=== PATIENT | female | born 1995 | race Caucasian/White ===

== ENCOUNTER 2019-06-14 22:25 | Emergency (ER) | payer BC, OTHER ==
[2019-06-14] MEDS ORDERED: Ibuprofen 800 MG Tab PO ONE (23:24)
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
[2019-06-14] MEDS ORDERED: Baclofen 10 MG Tab PO ONE (23:34)
== END 2019-06-14 23:55 | disposition home or self-care (01) ==
LOC: FB.ED 22:25
DX: S29.012A Strain of muscle and tendon of back wall of thorax, initial encounter (principal); S46.911A Strain of unspecified muscle, fascia and tendon at shoulder and upper arm level, right arm, initial encounter; F17.210 Nicotine dependence, cigarettes, uncomplicated; F32.9 Major depressive disorder, single episode, unspecified; Z88.0 Allergy status to penicillin; F41.9 Anxiety disorder, unspecified; X58.XXXA Exposure to other specified factors, initial encounter; Y92.099 Unspecified place in other non-institutional residence as the place of occurrence of the external cause; Y99.0 Civilian activity done for income or pay
CPT/HCPCS: 36415; 73030-RT; 93005; 99000; 99283-25; A9270-GY

== ENCOUNTER 2020-08-05 11:28 | Emergency (ER) | payer BC, OTHER ==
[2020-08-05] MEDS ORDERED: hydrOXYzine HCl 50 MG/ML SDV IM ONE (11:45)
[2020-08-05] MEDS ORDERED: Ketorolac 30 MG/ML SDV IVPUSH ONE (11:45)
[2020-08-05] MEDS ORDERED: Ondansetron 4 MG/2 ML SDV IVPUSH ONE (11:45)
--- NOTE | 2020-08-05 11:47 | EDM.PDOC ---
ED HPI GENERAL MEDICAL PROBLEM - General Chief Complaint: Headache Stated Complaint: MIGRAINE Time Seen by Provider: 08/05/20 11:40 Source of Information: Reports: Patient History Limitations: Reports: No Limitations - History of Present Illness INITIAL COMMENTS - FREE TEXT/NARRATIVE: pt with a history of migraines and had one since yesterday , this am tool tylenol and ibuprofen and did not help with the pain states she has history of chronic migraine , has been to see neurologist , has PCP prescribed multiple medications : neurontin, OCP , amitriptyline, nortriptyline , Imitrex , and none has been effective. She currently on Depo injection to aid with menstrual cycle headache today is frontal , affects her vision , had nausea and vomiting this morning No change from prior headaches Mother requesting head Ct : did tell her , from history it did not seem as if it was a structural problem , but she still insisted on getting head CT Headache Pain Score (Numeric/FACES): 10 - Related Data Allergies Allergy/AdvReac Type Severity Reaction Status Date / Time Penicillins Allergy Intermediate Hives Verified 06/14/19 23:44 Home Meds: Home Meds Baclofen 10 mg PO TID PRN #30 tablet 06/14/19 [Rx] Ibuprofen 600 mg PO Q6H PRN #30 tablet 06/14/19 [Rx] Sertraline HCl 50 mg PO DAILY 06/14/19 [History] Ketorolac [Toradol] 10 mg PO Q6H PRN #20 tab 08/05/20 [Rx] Past Medical History Cardiovascular History: Reports: Heart Murmur Other Cardiovascular History: Has been told in past she has a heart murmur. Respiratory History: Reports: Asthma, Other (See Below) Other Respiratory History: Seasonal allergies. Uses an inhaler at times. 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 Neurological History: Reports: Migraines, Other (See Below) Other Neuro History: History of [place]. Psychiatric History: Reports: Anxiety, Depression Other Psychiatric History: took meds for these processes in the past but not recently - Infectious Disease History Infectious Disease History: Reports: Other (See Below) Other Infectious Disease History: History of [place]. Social & Family History - Family History Family Medical History: No Pertinent Family History - Caffeine Use Caffeine Use: Reports: Soda ED ROS GENERAL - Review of Systems Review Of Systems: See Below Constitutional: Reports: Malaise, Weakness, Fatigue. Denies: Fever, Chills HEENT: Reports: No Symptoms Respiratory: Reports: No Symptoms Cardiovascular: Reports: No Symptoms Endocrine: Reports: No Symptoms GI/Abdominal: Reports: Nausea, Vomiting : Reports: No Symptoms Musculoskeletal: Reports: No Symptoms. Denies: Neck Pain, Back Pain Skin: Reports: No Symptoms Neurological: Reports: Headache. Denies: Paresthesia, Pre-Existing Deficit, Syncope, Tingling, Trouble Speaking, Difficulty Walking, Weakness, Change in Speech, Gait Disturbance Psychiatric: Reports: No Symptoms Hematologic/Lymphatic: Reports: No Symptoms Immunologic: Reports: No Symptoms - Physical Exam Exam: See Below Exam Limited By: No Limitations General Appearance: Alert, WD/WN, No Apparent Distress Eye Exam: Bilateral Eye: EOMI Ears: Normal External Exam Nose: Normal Inspection Throat/Mouth: Normal Oropharynx Head Exam: Atraumatic, Normocephalic Neck: Supple, Non-Tender, Full Range of Motion Respiratory/Chest: No Respiratory Distress, No Accessory Muscle Use Cardiovascular: Normal Peripheral Pulses GI/Abdominal: Soft, Non-Tender Neuro Exam (Abbreviated): Alert, Oriented, CN II-XII Intact, Normal Cognition, Normal Gait, No Motor/Sensory Deficits Back Exam: Full Range of Motion Extremities: Normal Inspection, Normal Range of Motion Psychiatric: Anxious Skin Exam: Warm, Intact Course - Vital Signs Last Recorded V/S: Last Vital Signs Temp 36.7 C 08/05/20 14:12 Pulse 53 L 08/05/20 14:12 Resp 18 08/05/20 14:12 BP 125/84 08/05/20 14:12 Pulse Ox 100 08/05/20 14:12 - Orders/Labs/Meds Orders: Active Orders 24 hr Category Date Time Status Head wo Cont [CT] Stat Exams 08/05/20 13:05 Taken Lactated Ringers [Ringers, Lactated] 1,000 ml Med 08/05/20 12:00 Active IV ASDIRECTED Medication Orders Lactated Ringer's (Ringers, Lactated) 1,000 mls @ 999 mls/hr IV ASDIRECTED JACINDA Last Admin: 08/05/20 12:40 Dose: 999 mls/hr Documented by: THIEN Meds: Medications Generic Name Dose Route Start Last Admin Trade Name Austin PRN Reason Stop Dose Admin Lactated Ringer's 1,000 mls @ 999 mls/hr 08/05/20 12:00 08/05/20 12:40 Ringers, Lactated IV 999 mls/hr ASDIRECTED JACINDA Administration Discontinued Medications Generic Name Dose Route Start Last Admin Trade Name Austin PRN Reason Stop Dose Admin Hydroxyzine HCl 50 mg 08/05/20 11:45 08/05/20 12:18 Vistaril IM 08/05/20 11:46 50 mg ONETIME ONE Administration Ketorolac Tromethamine 30 mg 08/05/20 11:45 08/05/20 12:18 Toradol IVPUSH 08/05/20 11:46 30 mg ONETIME ONE Administration Ondansetron HCl 4 mg 08/05/20 11:45 08/05/20 12:18 Zofran IVPUSH 08/05/20 11:46 4 mg ONETIME ONE Administration - Re-Assessments/Exams Free Text/Narrative Re-Assessment/Exam: 08/05/20 15:38 pt started with IVF : toradol vistaril and Zofran given CT head done : negative pt declined to have full 1000cc of ivf on discharge [place] had reduced in intensity Departure - Departure Time of Disposition: 15:30 Disposition: Home, Self-Care 01 Condition: Fair Clinical Impression: Migraine, Tension-type headache - Discharge Information *PRESCRIPTION DRUG MONITORING PROGRAM REVIEWED*: Not Applicable *COPY OF PRESCRIPTION DRUG MONITORING REPORT IN PATIENT MARI: Not Applicable Prescriptions: Ketorolac [Toradol] 10 mg PO Q6H PRN #20 tab PRN Reason: Headache/Pain Instructions: Tension Headache, Adult, [id number], Recurrent Migraine Headache, [id number] Referrals: Dorian Marie MD [Primary Care Provider] - Forms: ED Department Discharge Additional Instructions: Make appointment to see a neurologist : Migraine/headache specialist Continue with all other medications as prescribed Sepsis Event Note (ED) - Focused Exam Vital Signs: Vital Signs Temp Pulse Resp BP Pulse Ox 08/05/20 14:12 36.7 C 53 L 18 125/84 100 08/05/20 11:35 36.7 C 129 H 18 145/74 H 100 - My Orders Last 24 Hours: My Active Orders 08/05/20 12:00 Lactated Ringers [Ringers, Lactated] 1,000 ml IV ASDIRECTED 08/05/20 13:05 Head wo Cont [CT] Stat - Assessment/Plan Last 24 Hours: My Active Orders 08/05/20 12:00 Lactated Ringers [Ringers, Lactated] 1,000 ml IV ASDIRECTED 08/05/20 13:05 Head wo Cont [CT] Stat
[2020-08-05] MEDS ORDERED: Lactated Ringers 1,000 ML IV SCH (12:00)
== END 2020-08-05 15:36 | disposition home or self-care (01) ==
LOC: FB.ED 11:28
DX: G43.909 Migraine, unspecified, not intractable, without status migrainosus (principal); G44.209 Tension-type headache, unspecified, not intractable; J45.909 Unspecified asthma, uncomplicated; F41.9 Anxiety disorder, unspecified; F32.9 Major depressive disorder, single episode, unspecified; Z88.0 Allergy status to penicillin; Z79.899 Other long term (current) drug therapy
CPT/HCPCS: 70450; 96372; 96374; 96375; 99283; J1885; J2405; J3410; J7120; 36410; 99284